=== PATIENT | female | born 1955 | race Caucasian/White ===

== ENCOUNTER 2016-09-09 14:52 | Emergency (ER) | payer OTHER ==
[~2016-09-09] VITALS: Ht 180.3 cm; Wt 92.5 kg
--- NOTE | 2016-09-09 15:20 | NUR ---
PT CAME IN FOR EVALUATION OF SURGICAL WOUND SITE ON ABDOMEN. NO NOTED S/S OF INFECTION. SEEN BY MD FOR EVAL. VSS. WOUND DRESSING REDRESSED PER MD. SAFETY AND COMFORT MEASURES PROVIDED. WILL MONITOR.
[2016-09-09 15:30] LABS: BASOPHILS # (AUTO) 0.1 /CMM (0.0-0.2); BASOPHILS % (AUTO) 0.5 % (0.0-2.0); EOSINOPHILS # (AUTO) 0.7 /CMM (0.0-0.7); HEMATOCRIT 28 % (33-45); LYMPHOCYTES # (AUTO) 2.1 /CMM (0.8-4.8); LYMPHOCYTES % (AUTO) 19.3 % (20.0-44.0); MEAN CORPUSCULAR HEMOGLOBIN 27 PG (26.0-33.0); MEAN CORPUSCULAR HGB CONC 32 g/dl (31.0-36.0); MEAN CORPUSCULAR VOLUME 86 fL (82-100); MONOCYTES # (AUTO) 0.7 /CMM (0.1-1.30); MONOCYTES % (AUTO) 6.4 % (2.0-12.0); NEUTROPHILS # (AUTO) 7.5 /CMM (1.8-8.9); NEUTROPHILS % (AUTO) 67.8 % (43.0-81.0); PLATELET COUNT (AUTO) 240 /CMM (150-450); RDW COEFFICIENT OF VARIATION 14.4 (11.5-15.0); RED BLOOD CELL COUNT(AUTO) 3.29 MIL/uL (4.0-5.2); WHITE BLOOD COUNT (AUTO) 11.1 K/uL (4.3-11.0)
[2016-09-09 15:40] LABS: CALCIUM, SERUM 9.5 mg/dL (8.5-10.1); POTASSIUM 4.2 mmol/L (3.5-5.1)
[2016-09-09 15:43] LABS: INR 1.2 (0.87-1.13); PROTHROMBIN TIME 12.6 SECS (9.5-12.7)
[2016-09-09 15:45] LABS: ALBUMIN 2.7 g/dL (3.4-5.0); BILIRUBIN,DIRECT 0.1 mg/dL (0.0-0.2); BILIRUBIN,TOTAL 0.3 mg/dL (0.2-1.0); TOTAL PROTEIN, SERUM 6.8 g/dL (6.4-8.2)
--- NOTE | 2016-09-09 16:42 | NUR ---
CALLED [facility]PONSE FOR TRANSPORT ETA OF 20 MINS WAS GIVEN.
--- NOTE | 2016-09-09 16:54 | NUR ---
Patient discharged to home in stable condition. Written and verbal after care instructions given. Patient verbalizes understanding of instruction.
--- NOTE | 2016-09-09 17:00 | NUR ---
REPORT GIVEN TO [facility] STAFF FOR DISCHARGE BACK TO [facility].
[2016-09-09 17:03] VITALS: BP 130/74
== END 2016-09-09 17:03 ==
LOC: ER 14:55
DX: Z48.00 Encounter for change or removal of nonsurgical wound dressing (principal); D64.9 Anemia, unspecified; F43.10 Post-traumatic stress disorder, unspecified; I10 Essential (primary) hypertension; J44.9 Chronic obstructive pulmonary disease, unspecified; F20.9 Schizophrenia, unspecified
CPT/HCPCS: 36415; 80048-TC; 80076-TC; 83690-TC; 85025-TC; 85730-TC; A4606; Z7610